=== PATIENT | female | born 1950 | race Caucasian/White ===

== ENCOUNTER 2017-09-08 11:04 | Outpatient (CLI) | payer OTHER, MEDICARE ==
--- NOTE | 2017-09-08 12:33 | CT ---
LOW DOSE LUNG CT SCAN: HISTORY: A 67-year-old female with 40-year smoking history. The patient quit 3 years ago. FINDINGS: No pulmonary nodules are seen. No pneumothoraces, focal areas of consolidation, pleural, or pericardial effusions are identified. T here are coronary and aortic calcifications without evidence of aneurysmal dilatation of the thoracic aorta. Degenerative changes are present in the spine. IMPRESSION: Lung RADS category 1 - negative. RECOMMENDATION: Continued annual screening with LD CT in 12 months. POS: [facility]
== END 2017-09-08 11:05 | disposition home or self-care (01) ==
LOC: CT 11:04
PROVIDERS: ATTEND Family Medicine
DX: Z12.2 Encounter for screening for malignant neoplasm of respiratory organs (principal); Z00.00 Encounter for general adult medical examination without abnormal findings; Z87.891 Personal history of nicotine dependence
CPT/HCPCS: G0297

== ENCOUNTER 2018-06-13 08:36 | Outpatient (CLI) | payer OTHER, MEDICARE ==
[2018-06-13] MEDS ORDERED: Regadenoson 0.4 MG/5 ML SYRINGE ONE (08:53)
--- NOTE | 2018-06-13 16:48 | NM ---
NUCLEAR MEDICINE CARDIAC STRESS TEST WITH EJECTION FRACTION: HISTORY: Other chest pain, R0.789, chest discomfort, E13.9, diabetes type 1.5, controlled, manages type 2. COMPARISON: None. TECHNIQUE: Stress and rest performed after the intravenous administration of 30.3 and 9.3 mCi Technetium 99m ses tamibi, respectively. The exam was performed using LexiScan stress protocol. The EKG stress showed no significant changes, negative. There is adequate left ventricular uptake of radiotracer. No scar or ischemia. Normal wall motion. The calculated ejection fraction is 80%. IMPRESSION: Normal nuclear medicine cardiac stress test and ejection fraction. POS: [facility]
== END 2018-06-13 08:37 | disposition home or self-care (01) ==
LOC: NM 08:36
PROVIDERS: ATTEND Family Medicine
DX: E13.9 Other specified diabetes mellitus without complications (principal); R07.89 Other chest pain
CPT/HCPCS: 78452; 93017; A9500; J2785

== ENCOUNTER 2019-04-26 10:37 | Outpatient (CLI) | payer OTHER, MEDICARE ==
--- NOTE | 2019-04-26 15:27 | CT ---
CT PULMONARY LUNG SCAN PERFORMED WITHOUT CONTRAST ENHANCEMENT: Date: 04/26/19 HISTORY: 40 year smoking history. Patient quit approximately 4 years ago. COMPARISON: 09/08/17 study. FINDINGS: The lungs are clear of any infiltrative process. There are some mild changes of centrilobular emphyse ma. There are no pulmonary nodules identified. No pleural effusions. No significant mediastinal adeno nicci is seen. There are coronary calcifications present. Visualized liver parenchyma shows no focal findings. IMPRESSION: 1. Lung-RADS Category 1 - Negative. Annual low dose exam recommended. 2. Subcategory S. This is given for the presence of coronary calcifications. POS: [facility]
== END 2019-04-26 10:38 | disposition home or self-care (01) ==
LOC: CT 10:37
PROVIDERS: ATTEND Family Medicine
DX: Z87.891 Personal history of nicotine dependence (principal); I25.10 Atherosclerotic heart disease of native coronary artery without angina pectoris
CPT/HCPCS: G0297

== ENCOUNTER 2020-04-29 10:31 | Outpatient (CLI) | payer MEDICARE ==
--- NOTE | 2020-04-29 11:13 | CT ---
Exam: Noncontrast chest CT; CT lung scan low dose HISTORY:Nicotine dependence. Current smoker. COMPARISON: 04/26/2019, 09/08/2017 TECHNIQUE: Low-dose screening lung CT is performed utilizing institutional protocol FINDINGS: Lung screening specific (LUNG-RADS): There is a solid nodule in the right lower lobe measuring 0.7 x 0.5 cm. In retrospect, nodule was present in 2019, measuring 0.6 x 0.5 cm, and is stable. In 2018, the nodule has a slightly different appearance due to slice selection. Based on coronal images and 20 18 there does not appear to be any significant change. No new nodules. Potential significant incidentals (lung RADS category S): Progression of scattered groundglass opacit ies throughout the lung parenchyma. Pulmonary incidentals:Redemonstration of scattered groundglass opacities throughout the lung parenchy ma which are nonspecific. Minimal blebs are noted in the left and right upper lobe. Stable calcified granuloma in the right lower lobe. Other incidentals: There are coronary calcifications. There is atherosclerosis of a nonaneurysmal aor ta. There are multilevel degenerative changes of the thoracic spine. IMPRESSION: 1. Lung RADS : Category 2. Benign Nodule has been stable for over 2 years. 2. Lung Rask category S:Progression of scattered groundglass opacities throughout the lung parenchyma . 3. Other incidentals as above. Recommendation: There has been over 2 years of stability of the solid nodule in the right lower lobe. However, there is progression of scattered groundglass opacities. As a conservative measure, 6 month follow-up chest CT is recommended.
== END 2020-04-29 10:32 | disposition home or self-care (01) ==
LOC: BICCT 10:31
PROVIDERS: ATTEND Family Medicine
DX: Z12.2 Encounter for screening for malignant neoplasm of respiratory organs (principal); F17.200 Nicotine dependence, unspecified, uncomplicated; R91.1 Solitary pulmonary nodule; R91.8 Other nonspecific abnormal finding of lung field; I25.10 Atherosclerotic heart disease of native coronary artery without angina pectoris; I70.0 Atherosclerosis of aorta; M47.814 Spondylosis without myelopathy or radiculopathy, thoracic region
CPT/HCPCS: G0297

== ENCOUNTER 2020-05-16 10:36 | Outpatient (CLI) | payer MEDICARE, OTHER ==
--- NOTE | 2020-05-16 10:57 | RAD ---
RIGHT KNEE 4 VIEWS: HISTORY: Right knee pain. FINDINGS/IMPRESSION: No fracture, dislocation, or bone destruction is seen. Enthesophyte is present. There is fullness i n the suprapatellar region suspicious for a joint effusion. POS: OFF
--- NOTE | 2020-05-21 15:42 | RAD ---
LEFT KNEE 4 VIEWS: HISTORY: Left knee pain. FINDINGS/IMPRESSION: No fracture, dislocation, or bone destruction is seen. Enthesophyte is present. There is fullness i n the suprapatellar region suspicious for a joint effusion.
== END 2020-05-16 10:37 | disposition home or self-care (01) ==
LOC: SCSRAD 10:36
PROVIDERS: ATTEND Family Medicine
DX: M25.562 Pain in left knee (principal); M77.9 Enthesopathy, unspecified

== ENCOUNTER 2020-06-17 08:19 | Outpatient (CLI) | payer MEDICARE, OTHER ==
--- NOTE | 2020-06-17 10:13 | MRI ---
MRI Lower Ext Jt Lt WO Con History: Medial knee pain Comparison: Left knee radiographs May 16, 2020 Findings: Medial meniscus: Mild free edge and undersurface fraying medial meniscal body and posterior horn with 2 mm gutter extrusion. No displaced tear. Lateral meniscus: Low-grade undersurface flap tear posterior horn body junction. Large mucinous degen eration lateral meniscal body. ACL, PCL, MCL and LCL are all intact. Extensor mechanism: Quadriceps tendon, patella and patellar tendon are intact. Cartilage: Patellofemoral compartment: Multifocal low-grade 25-30% lateral patellar facet fissures. No full-thic kness defect. Medial compartment: 30-40% chondral fraying throughout the weightbearing surfaces. No full-thickness defect. Lateral compartment: Few full-thickness chondral fissures central weightbearing surface lateral tibia l plateau. Remaining cartilage is relatively intact. Soft tissues: There is a moderate joint effusion. Moderate-large popliteal cyst with debris. Mild pre patellar soft tissue swelling. Muscles: Muscle signal and bulk is normal. Impression: 1. Mild fraying and intrasubstance degeneration medial meniscus without displaced tear. 2. Low-grade undersurface flap tear posterior horn body junction lateral meniscus with intrasubstance mucinous degeneration lateral meniscal body. 3. Moderate popliteal cyst containing debris. 4. Few full-thickness fissures of the lateral tibial plateau.
== END 2020-06-17 08:20 | disposition home or self-care (01) ==
LOC: BICMRI 08:19
PROVIDERS: ATTEND Family Medicine
DX: M25.562 Pain in left knee (principal); M25.362 Other instability, left knee

== ENCOUNTER 2020-10-29 08:41 | Outpatient (CLI) | payer MEDICARE | END 2020-10-29 08:42 | disposition home or self-care (01) | LOC: BICCT 08:41 | PROVIDERS: ATTEND Family Medicine | DX: R93.89 Abnormal findings on diagnostic imaging of other specified body structures (principal) | CPT/HCPCS: 71271 ==

== ENCOUNTER 2022-01-03 22:24 | Inpatient (IN) | payer MEDICARE ==
[2022-01-04] MEDS ORDERED: hydrALAZINE 20 MG/ML VIAL SLOW IVP PRN (01:10)
[2022-01-04] MEDS ORDERED: Ondansetron PF 4 MG/2 ML Vial IVP PRN (01:10)
[2022-01-04] MEDS ORDERED: Dextrose 5% in Water 1,000 ML IV PRN (01:10)
[2022-01-04] MEDS ORDERED: Dextrose 50% Abboject 50 ML SYRINGE SLOW IVP PRN (01:10)
[2022-01-04] MEDS ORDERED: Insulin Regular 300 UNITS/3 ML VIAL SC PRN ×2 (01:10)
[2022-01-04] MEDS ORDERED: Morphine 4 MG/ML VIAL SLOW IVP PRN ×2 (01:10→17:40)
[2022-01-04] MEDS ORDERED: traMADol HCl 50 MG TAB PO PRN ×3 (01:13→15:57)
[2022-01-04] MEDS ORDERED: Piperacillin/Tazobactam 3.375 GM VIAL ONE ×2 (01:15→13:37)
[2022-01-04] MEDS: Sodium Chloride 0.9% 1,000 ML IV SCH ×3 (02:43→19:14)
[2022-01-04 02:55] VITALS: BMI 27.3
[2022-01-04 04:49] LABS: SARS-CoV-2 NAA Rapid Test Not Detected (NotDetected)
[2022-01-04] MEDS: Piperacillin/Tazobactam 3.375 GM in Sodium Chloride 0.9% 100 ML IVPB SCH ×3 (05:45→20:25)
[2022-01-04] MEDS ORDERED: Famotidine 20 MG TAB PO SCH (09:00)
[2022-01-04 10:01] LABS: ALT (SGPT) 1534 U/L (8-55); AST (SGOT) 1876 U/L (5-34); Albumin 3.7 g/dL (3.4-4.8); Alkaline Phosphatase 268 U/L (40-110); Bilirubin, Direct 3.2 mg/dL (0.1-0.3); Bilirubin, Total 4.7 mg/dL (0.2-1.2); Lipase 18 U/L (8-78); Protein, Total 6.6 g/dL (5.8-8.1)
[2022-01-04] MEDS ORDERED: fentaNYL Citrate/PF 100 MCG/2 ML SYRINGE ONE ×2 (13:10→13:45)
[2022-01-04] MEDS ORDERED: Promethazine HCl 25 MG/ML VIAL ONE (13:10)
[2022-01-04] MEDS ORDERED: Lidocaine 1% w/Epinephrine 1:100K 20 ML VIAL ONE (13:26)
[2022-01-04] MEDS ORDERED: Bupivacaine 0.25% HCL 30 ML VIAL ONE (13:26)
[2022-01-04] MEDS ORDERED: Iopamidol 30 ML ONE (13:26)
[2022-01-04] MEDS ORDERED: Sodium Chloride 0.9% 100 ML ONE (13:37)
[2022-01-04] MEDS ORDERED: Famotidine/PF 20 mg/2ml Vial ONE (13:45)
[2022-01-04] MEDS ORDERED: Lidocaine 1% PF 5 ML VIAL ONE (14:17)
[2022-01-04] MEDS ORDERED: Ondansetron PF 4 MG/2 ML Vial ONE (14:17)
[2022-01-04] MEDS ORDERED: Rocuronium Bromide 10 MG/ML (10ML VIAL) ONE (14:17)
[2022-01-04] MEDS ORDERED: Glycopyrrolate 0.2 MG/ML 5 ML SYRINGE ONE (14:17)
[2022-01-04] MEDS ORDERED: PROPOFOL 200 MG/20 ML VIAL ONE (14:17)
[2022-01-04] MEDS ORDERED: Esmolol 100 MG/10 ML VIAL ONE (14:17)
[2022-01-04] MEDS ORDERED: Promethazine HCl 25 MG/ML VIAL IM PRN ×2 (14:52→17:40)
[2022-01-04] MEDS ORDERED: HYDROmorphone 2 MG/ML VIAL SLOW IVP PRN (14:52)
[2022-01-04] MEDS ORDERED: Meperidine HCl/PF 25 MG/ML VIAL SLOW IVP PRN (14:52)
[2022-01-04] MEDS ORDERED: Promethazine HCl 25 MG/ML VIAL IVPB PRN (14:52)
[2022-01-04] MEDS ORDERED: Morphine 2 MG/ML VIAL SLOW IVP PRN (17:40)
[2022-01-04] MEDS: Acetaminophen 325 MG TAB PO SCH ×2 (18:24→23:58)
[2022-01-04] MEDS: traMADol HCl 50 MG TAB PO SCH ×2 (18:27→23:58)
[2022-01-04] MEDS: DULoxetine 60 MG CAP PO SCH (20:25)
[2022-01-04] MEDS: Ketorolac Tromethamine 30 MG/ML VIAL IVP SCH (23:57)
[2022-01-05] MEDS: Piperacillin/Tazobactam 3.375 GM in Sodium Chloride 0.9% 100 ML IVPB SCH ×2 (05:44→12:23)
[2022-01-05] MEDS: Acetaminophen 325 MG TAB PO SCH ×2 (05:46→12:21)
[2022-01-05] MEDS: traMADol HCl 50 MG TAB PO SCH ×2 (05:46→12:22)
[2022-01-05] MEDS: Ketorolac Tromethamine 30 MG/ML VIAL IVP SCH ×2 (05:47→12:23)
[2022-01-05 06:07] LABS: #Basophils 0.1 thou/uL (0.0-0.2); #Eosinphils 0.1 thou/uL (0.0-0.7); #Lymphocytes 0.9 thou/uL (1.20-3.40); #Monocytes 0.4 thou/uL (0.11-0.59); #Neutrophils 4.6 thou/uL (1.40-6.50); %Basophils 0.9 % (0.0-1.0); %Eosinophils 1.8 % (0.0-10.0); %Lymphocytes 15.2 % (21.0-51.0); %Monocytes 6.4 % (0.0-10.0); %Neutrophils 75.7 % (42.0-75.0); Hemoglobin 14.3 g/dL (12.0-16.0); Mean Corpuscular HGB CONC 33.6 g/dL (32.0-36.0); Mean Corpuscular Hemoglobin 32.6 pg (27.0-31.0); Mean Corpuscular Volume 97.2 fL (78.0-98.0); Mean Platelet Volume 8.6 fL (7.4-10.4); Platelet Count 121 thou/uL (130-400); RBC Distribution Width 12.5 % (11.5-14.5); Red Blood Cell (RBC) Count 4.38 mill/uL (4.20-5.40); White Blood Cell (WBC) Count 6.1 thou/uL (4.8-10.8)
[2022-01-05 06:31] LABS: ALT (SGPT) 885 U/L (8-55); AST (SGOT) 541 U/L (5-34); Albumin 3.2 g/dL (3.4-4.8); Alkaline Phosphatase 219 U/L (40-110); Anion Gap 12 mmol/L (10-20); BUN (Urea Nitrogen) 14 mg/dL (9.8-20.1); Bilirubin, Direct 3.6 mg/dL (0.1-0.3); Bilirubin, Total 5.1 mg/dL (0.2-1.2); Calc. Creatinine Clearance 80 mL/min (70-130); Calcium 8.4 mg/dL (7.8-10.44); Carbon Dioxide 24 mmol/L (23-31); Chloride 105 mmol/L (98-107); Estimated GFR 80; Glucose 115 mg/dL (83-110); Magnesium 1.9 mg/dL (1.6-2.6); Potassium 3.7 mmol/L (3.5-5.1); Protein, Total 5.8 g/dL (5.8-8.1); Sodium 137 mmol/L (136-145)
[2022-01-05] MEDS: DULoxetine 60 MG CAP PO SCH (08:58)
[2022-01-05] MEDS ORDERED: Enoxaparin Sodium 40 MG/0.4 ML SYRINGE SC SCH (09:00)
[2022-01-05] MEDS ORDERED: Aripiprazole 10 MG TAB PO SCH (09:00)
[2022-01-05] MEDS ORDERED: BIOTIN 2500 MCG PO SCH (09:00)
[2022-01-05] MEDS ORDERED: Levothyroxine Sodium 50 MCG TAB PO SCH (09:00)
[2022-01-05] MEDS ORDERED: PHOS-NAK 1 PKT PACK PO SCH (09:00)
[2022-01-05] MEDS ORDERED: Atorvastatin Calcium 40 MG TAB PO SCH (09:00)
[2022-01-05 12:17] VITALS: BP 130/79; TEMP 98.1
[2022-01-05] MEDS: Sodium Chloride 0.9% 1,000 ML IV SCH (13:59)
== END 2022-01-05 16:25 | disposition home or self-care (01) | DRG 419 ==
LOC: ERS 22:24 → SURG A 01-04 01:10
PROVIDERS: ADMIT Physician Assistant Medical; ATTEND Surgery
PROC: 0FT44ZZ Resection of Gallbladder, Percutaneous Endoscopic Approach (ICD-10-PCS; principal; 2022-01-04)
PROC: BF101ZZ Fluoroscopy of Bile Ducts using Low Osmolar Contrast (ICD-10-PCS; 2022-01-04)
DX: K80.62 Calculus of gallbladder and bile duct with acute cholecystitis without obstruction (principal); Z20.822 Contact with and (suspected) exposure to COVID-19; I10 Essential (primary) hypertension; E11.9 Type 2 diabetes mellitus without complications; F41.9 Anxiety disorder, unspecified; K21.9 Gastro-esophageal reflux disease without esophagitis; Z90.49 Acquired absence of other specified parts of digestive tract; Z79.82 Long term (current) use of aspirin; Z79.4 Long term (current) use of insulin; Z79.899 Other long term (current) drug therapy
CPT/HCPCS: 36415; 36416; 47532; 76705; 80048; 80076; 83690; 83735; 84100; 85025; 88304; 96365; C1713; J1650; J1885; J2270; J2405; J2543; J2550; J2704; J3490; J7050; Q9967; S0020; S0028; U0002

== ENCOUNTER 2023-10-13 06:50 | Inpatient (IN) | payer MEDICARE ==
[2023-10-13] MEDS ORDERED: Indomethacin 50 MG SUPP ONE (08:26)
[2023-10-13] MEDS ORDERED: Iopamidol 30 ML ONE (08:27)
[2023-10-13] MEDS ORDERED: SUCCINYLCHOLINE/SOD CL,ISO/PF 200 MG/10 ML SYRINGE FS ONE (08:57)
[2023-10-13] MEDS ORDERED: Lidocaine 1% PF 5 ML VIAL ONE (08:57)
[2023-10-13] MEDS ORDERED: PROPOFOL 20 ML ONE ×2 (08:57→09:26)
[2023-10-13] MEDS ORDERED: Ondansetron PF 4 MG/2 ML Vial ONE (08:57)
[2023-10-13] MEDS ORDERED: Rocuronium Bromide 10 MG/ML (10ML VIAL) ONE (08:57)
[2023-10-13] MEDS ORDERED: LevoFLOXacin D5W 500 mg (100 mL) BAG ONE (08:58)
[2023-10-13] MEDS ORDERED: PHENYLEPHRINE-NS 100 MCG/ML 10 ML SYRINGE ONE (09:33)
[2023-10-13] MEDS ORDERED: HYDROmorphone 2 MG/ML VIAL SLOW IVP PRN (09:55)
[2023-10-13] MEDS ORDERED: Meperidine HCl/PF 25 MG/ML VIAL SLOW IVP PRN (09:55)
[2023-10-13] MEDS ORDERED: Morphine Sulfate 2 MG/ML SYRINGE SLOW IVP PRN (09:55)
[2023-10-13] MEDS ORDERED: Promethazine HCl 25 MG/ML VIAL IM PRN (09:55)
[2023-10-13] MEDS ORDERED: Ondansetron HCl/PF 4 MG/2 ML Vial IVP PRN (09:55)
[2023-10-13] MEDS ORDERED: Glucagon 1 MG/ML KIT ONE (09:57)
[2023-10-13] MEDS ORDERED: SUGAMMADEX SODIUM 200 MG/2 ML VIAL ONE ×2 (10:15→10:20)
[2023-10-13] MEDS ORDERED: Labetalol HCl 100 MG/20 ML VIAL ONE (10:23)
[2023-10-13] MEDS ORDERED: Morphine 2 MG/ML VIAL ONE ×3 (11:47→14:09)
[2023-10-13] MEDS ORDERED: Iopamidol-370 76% 500 ML MDV (1 ML CHARGE) ONE (12:36)
[2023-10-13] MEDS ORDERED: Glucagon 1 MG/ML KIT IM PRN (17:00)
[2023-10-13] MEDS ORDERED: Dextrose 50% Abboject 50 ML SYRINGE SLOW IVP PRN (17:00)
[2023-10-13] MEDS ORDERED: Dextrose 5% in Water 1,000 ML IV PRN ×2 (17:00→18:12)
[2023-10-13] MEDS ORDERED: Morphine 2 MG/ML VIAL SLOW IVP PRN (17:03)
[2023-10-13] MEDS: Sodium Chloride 0.9% 1,000 ML IV SCH (17:12)
[2023-10-13] MEDS: Morphine 2 MG/ML VIAL SLOW IVP PRN (17:28)
[2023-10-13] MEDS ORDERED: Insulin Regular 300 UNITS/3 ML VIAL SC PRN (18:12)
[2023-10-13] MEDS: Losartan 25 MG TAB PO SCH (18:58)
[2023-10-13] MEDS: Insulin Regular 300 UNITS/3 ML VIAL SC PRN (18:59)
[2023-10-13] MEDS: hydrALAZINE 20 MG/ML VIAL SLOW IVP PRN (19:02)
[2023-10-13 19:06] LABS: #Basophils Less than 0.03 10x3/uL (0.0-0.2); #Eosinphils Less than 0.03 10x3/uL (0.0-0.7); %Basophils 0.1 % (0.0-1.0); %Eosinophils 0.1 % (0.0-10.0); %Lymphocytes 8.4 % (21.0-51.0); %Monocytes 4.2 % (0.0-10.0); %Neutrophils 86.8 % (42.0-75.0); Hematocrit 47.3 % (36.0-47.0); Hemoglobin 15.7 g/dL (12.0-16.0); Mean Corpuscular HGB CONC 33.2 g/dL (32.0-36.0); Mean Corpuscular Hemoglobin 32.2 pg (27.0-31.0); Mean Corpuscular Volume 96.9 fL (78.0-98.0); Mean Platelet Volume 10.9 fL (7.4-10.4); Platelet Count 180 10x3/uL (130-400); RBC Distribution Width 13.8 % (11.5-14.5); Red Blood Cell (RBC) Count 4.88 mill/uL (4.20-5.40)
[2023-10-13 19:13] LABS: Anion Gap 13 mmol/L (10-20); Globulin 3.1 g/dL (2.4-3.5)
[2023-10-13 19:22] LABS: ALT (SGPT) 47 U/L (8-55); AST (SGOT) 44 U/L (5-34); Albumin 3.5 g/dL (3.4-4.8); Alkaline Phosphatase 67 U/L (40-110); BUN (Urea Nitrogen) 6 mg/dL (9.8-20.1); Bilirubin, Total 0.8 mg/dL (0.2-1.2); Calc. Creatinine Clearance 0 mL/min (70-130); Carbon Dioxide 27 mmol/L (23-31); Chloride 100 mmol/L (98-107); Estimated GFR 90; Glucose 231 mg/dL (83-110); Potassium 4.2 mmol/L (3.5-5.1); Protein, Total 6.6 g/dL (5.8-8.1); Sodium 136 mmol/L (136-145)
[2023-10-13 19:25] LABS: Lipase 395 U/L (8-78)
[2023-10-13] MEDS: traMADol HCl 50 MG TAB PO SCH (20:55)
[2023-10-13] MEDS: Ondansetron PF 4 MG/2 ML Vial IVP PRN (21:25)
[2023-10-14] MEDS: Levothyroxine Sodium 50 MCG TAB PO SCH (05:13)
[2023-10-14 05:51] LABS: #Basophils Less than 0.03 10x3/uL (0.0-0.2); %Basophils 0.1 % (0.0-1.0); %Eosinophils 0.2 % (0.0-10.0); %Lymphocytes 11.4 % (21.0-51.0); %Monocytes 4.9 % (0.0-10.0); %Neutrophils 83.1 % (42.0-75.0); Hematocrit 46.4 % (36.0-47.0); Hemoglobin 15.9 g/dL (12.0-16.0); Mean Corpuscular HGB CONC 34.3 g/dL (32.0-36.0); Mean Corpuscular Hemoglobin 32.4 pg (27.0-31.0); Mean Corpuscular Volume 94.5 fL (78.0-98.0); Mean Platelet Volume 11.4 fL (7.4-10.4); Platelet Count 216 10x3/uL (130-400); RBC Distribution Width 14.1 % (11.5-14.5); Red Blood Cell (RBC) Count 4.91 mill/uL (4.20-5.40)
[2023-10-14 05:54] LABS: Anion Gap 17 mmol/L (10-20); Globulin 3.7 g/dL (2.4-3.5)
[2023-10-14 05:59] LABS: ALT (SGPT) 43 U/L (8-55); AST (SGOT) 44 U/L (5-34); Albumin 3.4 g/dL (3.4-4.8); Alkaline Phosphatase 62 U/L (40-110); BUN (Urea Nitrogen) 8 mg/dL (9.8-20.1); Bilirubin, Total 0.9 mg/dL (0.2-1.2); Calc. Creatinine Clearance 0 mL/min (70-130); Calcium 8.5 mg/dL (7.8-10.44); Carbon Dioxide 19 mmol/L (23-31); Chloride 101 mmol/L (98-107); Estimated GFR 91; Glucose 216 mg/dL (83-110); Lipase 278 U/L (8-78); Potassium 4.8 mmol/L (3.5-5.1); Protein, Total 7.1 g/dL (5.8-8.1); Sodium 132 mmol/L (136-145)
[2023-10-14] MEDS: Pantoprazole DR 40 MG TAB PO SCH (09:04)
[2023-10-14] MEDS: Losartan 25 MG TAB PO SCH (09:07)
[2023-10-14] MEDS: Insulin Glargine 30 UNITS/0.3 ML VIAL SC SCH (09:31)
[2023-10-14] MEDS: hydrALAZINE 20 MG/ML VIAL SLOW IVP PRN (17:40)
[2023-10-14] MEDS: Acetaminophen 325 MG TAB PO PRN (21:18)
[2023-10-15 07:54] LABS: #Basophils 0.03 10x3/uL (0.0-0.2); #Eosinphils Less than 0.03 10x3/uL (0.0-0.7); %Basophils 0.2 % (0.0-1.0); %Eosinophils 0.1 % (0.0-10.0); %Lymphocytes 7.1 % (21.0-51.0); %Monocytes 5.2 % (0.0-10.0); Hematocrit 45.4 % (36.0-47.0); Hemoglobin 15.6 g/dL (12.0-16.0); Mean Corpuscular HGB CONC 34.4 g/dL (32.0-36.0); Mean Corpuscular Hemoglobin 32.4 pg (27.0-31.0); Mean Corpuscular Volume 94.4 fL (78.0-98.0); Mean Platelet Volume 10.6 fL (7.4-10.4); Platelet Count 181 10x3/uL (130-400); RBC Distribution Width 14.2 % (11.5-14.5); Red Blood Cell (RBC) Count 4.81 mill/uL (4.20-5.40)
[2023-10-15 08:19] LABS: Anion Gap 13 mmol/L (10-20)
[2023-10-15 08:24] LABS: ALT (SGPT) 33 U/L (8-55); AST (SGOT) 21 U/L (5-34); Alkaline Phosphatase 64 U/L (40-110); BUN (Urea Nitrogen) 6 mg/dL (9.8-20.1); Bilirubin, Direct 0.4 mg/dL (0.1-0.3); Bilirubin, Total 1.5 mg/dL (0.2-1.2); Calc. Creatinine Clearance 0 mL/min (70-130); Calcium 8.7 mg/dL (7.8-10.44); Carbon Dioxide 25 mmol/L (23-31); Chloride 103 mmol/L (98-107); Estimated GFR 96; Glucose 185 mg/dL (83-110); Potassium 3.6 mmol/L (3.5-5.1); Protein, Total 6.3 g/dL (5.8-8.1); Sodium 137 mmol/L (136-145)
[2023-10-15 11:52] VITALS: BP 141/86; TEMP 98.4
== END 2023-10-15 12:44 | disposition home or self-care (01) | DRG 438 ==
LOC: SDC 06:50 → T4-A 13:51 → OBSVTOIN 10-14 14:34
PROVIDERS: ADMIT Internal Medicine Gastroenterology; ATTEND Internal Medicine Gastroenterology
PROC: 0FC78ZZ Extirpation of Matter from Common Hepatic Duct, Via Natural or Artificial Opening Endoscopic (ICD-10-PCS; principal; 2023-10-13)
DX: K85.90 Acute pancreatitis without necrosis or infection, unspecified (principal); J69.0 Pneumonitis due to inhalation of food and vomit; K80.50 Calculus of bile duct without cholangitis or cholecystitis without obstruction; F32.A Depression, unspecified; F17.210 Nicotine dependence, cigarettes, uncomplicated; I10 Essential (primary) hypertension; E11.9 Type 2 diabetes mellitus without complications; E03.9 Hypothyroidism, unspecified; D72.828 Other elevated white blood cell count; M47.816 Spondylosis without myelopathy or radiculopathy, lumbar region; Z79.82 Long term (current) use of aspirin; Z90.49 Acquired absence of other specified parts of digestive tract; Z79.899 Other long term (current) drug therapy
CPT/HCPCS: 36415; 36416; 71045; 74177; 74330; 80048; 80053; 80076; 83690; 85025; 96374; 96375; 96376; C1769; G0378; J0360; J1611; J1815; J1956; J2272; J2405; J2704; J7050; Q9967